=== PATIENT | female | born 1990 | race Caucasian/White ===

== ENCOUNTER 2016-05-30 21:05 | Emergency (ER) | payer OTHER ==
[~2016-05-30] VITALS: Ht 157.5 cm; Wt 45.4 kg
[~2016-05-30 21:05] MED LIST: ATIVAN0.5 MG PO; KEFLEX500 MG PO; NAPROXEN500 MG PO; NORCO 5/3251 TABLET PO; PEN-VEE K,VEET500 MG PO; PROMETHAZINE HC25 M1 PO
[2016-05-30 21:54] LABS: HEMATOCRIT 32.7 % (36.0-46.0); MCH 35.6 PG (29.0-34.0); MCHC 34.3 G/DL (30.0-36.0); MCV 103.8 FL (83-99); MEAN PLAT.VOLUME 9.6 uM^3 (9.5-12.4); PLATELET COUNT 147 K/uL (156-360); RBC DIS.WIDTH-CV 12.5 % (11.8-14.6); RBC DIS.WIDTH-SD 45.8 % (39-53); RED BLOOD COUNT 3.15 M/uL (3.80-5.20); WHITE BLOOD COUNT 7.2 K/uL (4.1-10.2)
[2016-05-30 22:02] LABS: CHLORIDE 98 mEq/L (99-109); POTASSIUM 3.2 mEq/L (3.7-5.4); SODIUM 134 mEq/L (136-147)
[2016-05-30 22:03] LABS: GLUCOSE 122 mg/dL (70-99)
[2016-05-30 22:03] LABS: AMPHETAMINE NEGATIVE (500 ng/mL); BARBITURATES NEGATIVE (200 ng/mL); BENZODIAZEPINES NEGATIVE (150 ng/mL); COCAINE NEGATIVE (150 ng/mL); INTERNAL CONTROLS VALID? YES; METHADONE PRESUMPTIVE POSITIVE (200 ng/mL); METHAMPHETAMINE NEGATIVE (500 ng/mL); OPIATES (MORPHINE) NEGATIVE (100 ng/mL); OXYCODONE NEGATIVE (100 ng/mL); PHENCYCLIDINE NEGATIVE (25 ng/mL); PROPOXYPHENE NEGATIVE (300 ng/mL); THC CANNABINOIDS NEGATIVE (50 ng/mL); TRICYCLIC ANTIDEPRESSANTS NEGATIVE (300 ng/mL)
[2016-05-30 22:05] LABS: ANION GAP 11 MEQ/L (2-14)
[2016-05-30 22:07] LABS: GFR ESTIMATE (CALCULATED) > 59 mL/min/; SERUM ETHYL ALCOHOL < 10 mg/dL
[2016-05-30 22:08] LABS: UREA NITROGEN (BUN) 8 mg/dL (9-23)
[2016-05-30 22:16] LABS: QUANTITATIVE HCG < 4.0 MIU/ML
[2016-05-30 23:29] VITALS: BP 134/89
== END 2016-05-30 23:34 | disposition home or self-care (01) ==
LOC: EME → EDBD 21:05 → EME 21:05 → EDSEX 21:05 → EME 23:34
PROVIDERS: Emergency Medicine
DX: R56.9 Unspecified convulsions (principal); F17.200 Nicotine dependence, unspecified, uncomplicated
CPT/HCPCS: 70450; 80048; 84702; 85027; 93005; 99281; 99284; G0480

== ENCOUNTER 2016-06-25 13:59 | Emergency (ER) | payer OTHER ==
[~2016-06-25] VITALS: Ht 170.2 cm; Wt 48.0 kg
[2016-06-25 15:52] LABS: EOSINOPHIL (%) 0.2 % (0-5); HEMATOCRIT 33.9 % (36.0-46.0); LYMPHOCYTE COUNT 1.2 K/uL (1.0-2.8); MCH 35.6 PG (29.0-34.0); MCHC 34.8 G/DL (30.0-36.0); MCV 102.4 FL (83-99); MONOCYTE (%) 6.6 % (3-12); MONOCYTE COUNT 0.4 K/uL (0-0.8); NEUTROPHIL (%) 71.4 % (45-76); NEUTROPHIL COUNT 3.9 K/uL (1.8-6.4); RBC DIS.WIDTH-CV 12.8 % (11.8-14.6); RBC DIS.WIDTH-SD 46.1 % (39-53); RED BLOOD COUNT 3.31 M/uL (3.80-5.20); WHITE BLOOD COUNT 5.4 K/uL (4.1-10.2)
[2016-06-25 16:01] LABS: CHLORIDE 99 mEq/L (99-109); POTASSIUM 3.4 mEq/L (3.7-5.4); SODIUM 138 mEq/L (136-147)
[2016-06-25 16:04] LABS: GLUCOSE 94 mg/dL (70-99)
[2016-06-25 16:05] LABS: ANION GAP 11 MEQ/L (2-14)
[2016-06-25 16:06] LABS: TOTAL BILIRUBIN 1.4 mg/dL (0.0-1.0)
[2016-06-25 16:07] LABS: ALKALINE PHOSPHATASE 100 IU/L (3-129); GFR ESTIMATE (CALCULATED) > 59 mL/min/
[2016-06-25 16:08] LABS: UREA NITROGEN (BUN) 8 mg/dL (9-23)
[2016-06-25 16:10] LABS: CREATINE KINASE 186 IU/L (1-294); TOTAL CK 186 IU/L (1-294)
[2016-06-25 16:17] LABS: QUANTITATIVE HCG < 4.0 MIU/ML
[2016-06-25 16:18] LABS: CK-MB 2.6 ng/mL (0.0-4.9)
[2016-06-25 16:34] LABS: PLAT.SUFFICIENCY DECREASED; USER ID BW1
[2016-06-25 16:35] LABS: MEAN PLAT.VOLUME 9.4 uM^3 (9.5-12.4)
[2016-06-25 16:36] LABS: PLATELET COUNT 87 K/uL (156-360)
[2016-06-25 17:22] VITALS: BP 118/74
== END 2016-06-25 17:28 | disposition home or self-care (01) ==
LOC: EME 13:59
PROVIDERS: Emergency Medicine
DX: R56.9 Unspecified convulsions (principal); F11.20 Opioid dependence, uncomplicated; D69.6 Thrombocytopenia, unspecified; F17.200 Nicotine dependence, unspecified, uncomplicated
CPT/HCPCS: 80053; 82550; 82553; 84702; 85025; 93005; 99281; 99284

== ENCOUNTER 2017-06-10 00:27 | Emergency (ER) | payer OTHER ==
[~2017-06-10] VITALS: Ht 162.6 cm; Wt 46.8 kg
[2017-06-10 02:14] VITALS: BP 116/82
== END 2017-06-10 02:14 | disposition home or self-care (01) ==
LOC: EME 00:27
PROC: 0HQ1XZZ Repair Face Skin, External Approach (ICD-10-PCS; principal; 2017-06-10)
DX: S01.81XA Laceration without foreign body of other part of head, initial encounter (principal); F10.129 Alcohol abuse with intoxication, unspecified; W22.09XA Striking against other stationary object, initial encounter; F17.200 Nicotine dependence, unspecified, uncomplicated
CPT/HCPCS: 99281; 99284